=== PATIENT | male | born 1990 | race Caucasian/White ===

== ENCOUNTER → 2020-03-04 12:56 | Outpatient (CLI) | payer OTHER, SELFPAY ==
--- NOTE | 2020-03-04 | DI.RAD.S_ITS ---
PROCEDURE: FL SHOULDER INJECTION MR/CT RT INDICATIONS: CHRONIC RIGHT SHOULDER PAIN TECHNIQUE: The indications, alternatives, benefits, risks, and complications of the procedure were explained to the patient. Written informed consent was obtained and placed in the chart. The shoulder was examined fluoroscopically and a site for needle placement chosen for entry into the glenohumeral joint from an anterior approach. The skin was prepped and draped in a sterile fashion, and 1% lidocaine infiltrated from skin down to joint capsule. A spinal needle was inserted into the glenohumeral joint, and a small amount of iodinated contrast media injected to confirm intra-articular placement of the needle tip. This was followed by approximately 12 mL dilute solution of a gadolinium containing MR contrast agent. The needle was removed and a dressing was applied. The patient was given postprocedural instructions and sent to the MR suite for MR imaging. FINDINGS: A single fluoroscopic spot image demonstrates intra-articular location of injected iodinated contrast. IMPRESSION: Successful fluoroscopically guided administration of dilute Gadolinium solution into the shoulder joint for MR arthrogram. Dictated by: German Perez M.D. on 03/04/2020 at 14:10 Approved by: German Perez M.D. on 03/04/2020 at 14:11
--- NOTE | 2020-03-04 | DI.MRI.S_ITS ---
PROCEDURE: MR SHOULDER RT W CON INDICATIONS: CHRONIC RIGHT SHOULDER PAIN TECHNIQUE: After the administration of 12 mL of dilute intra-articular Gadolinium contrast, oblique coronal T1 and T2 spin echo with fat saturation, oblique sagittal T1 spin echo with and without fat saturation, oblique sagittal T2 fast spin echo with fat saturation, axial T1 spin echo with fat saturation through the shoulder. COMPARISON: None. FINDINGS: Image quality: Excellent. Rotator cuff: Tendinosis and low-grade articular and bursal surface partial thickness tear involving distal supraspinatus at its insertion on humeral head is seen extending to musculotendinous junction. Distal infraspinatus and subscapularis tendons are grossly intact. No full-thickness rotator cuff tendon rupture. No rotator cuff muscle atrophy on sagittal images. Bones and bursae: No bone marrow contusions or fractures. No acromioclavicular joint degeneration. The acromion demonstrates conventional anatomy, without an os acromiale. Capsule and soft tissues: There is superior anterior labral tear at 12 to 1 o'clock position. The glenohumeral ligaments appear intact. The long head of the biceps tendon demonstrates normal location and morphology. The rotator interval appears normal, without fibrosis. The coracohumeral ligament is of normal thickness. No intra-articular bodies. IMPRESSION: 1. Suggestion of superior anterior labral tear at 12 to 1 o'clock position. 2. Tendinosis and low-grade articular and bursal surface partial thickness tear involving distal supraspinatus extending to musculotendinous junction. Dictated by: José Miguel Orlando M.D. on 03/04/2020 at 14:30 Approved by: José Miguel Orlando M.D. on 03/04/2020 at 14:34
== END ==
PROVIDERS: PCP Student in an Organized Health Care Education/Training Program; Referring Provider Student in an Organized Health Care Education/Training Program; Visit Provider Student in an Organized Health Care Education/Training Program
DX: M25.511 Pain in right shoulder (principal); M75.111 Incomplete rotator cuff tear or rupture of right shoulder, not specified as traumatic; G89.29 Other chronic pain
CPT/HCPCS: 23350; 73222; 77002

== ENCOUNTER 2021-07-27 13:17 | Emergency (ER) | payer OTHER, SELFPAY ==
[2021-07-27 13:53] VITALS: BP 131/72; PULSE 101; RESP 20; TEMP 36.9; O2SAT 99
--- NOTE | 2021-07-27 14:27 | ED.RECABL ---
HPI - Recheck/Abnormal Lab/Rx General Chief Complaint: Recheck/Abnormal Lab/Rx Stated Complaint: AT HOME COVID POSITIVE TEST Time Seen by Provider: 07/27/21 14:19 Source: patient Mode of arrival: Ambulatory History of Present Illness HPI narrative: Otherwise healthy unvaccinated 30-year-old gentleman with acute onset cough, severe fatigue, mild nausea single episode of vomiting, heightened sense of smell over the last 12 hours and general malaise with a positive home COVID test presents for further evaluation. Apparently his work requests confirmation and medical care. Related Data Previous Rx's Medication Instructions Recorded benzonatate 100 mg capsule 100 mg PO BID-TID PRN #20 cap 07/27/21 ondansetron 4 mg disintegrating 4 mg PO Q8H PRN #12 tab 07/27/21 tablet Allergies Allergy/AdvReac Type Severity Reaction Status Date / Time No Known Drug Allergies Allergy Verified 07/27/21 13:56 Review of Systems Review of Systems Narrative: Remainder of complete review of systems is otherwise unremarkable except for that included in the HPI. Patient History Medical History (Updated 07/27/21 @ 14:31 by Nicole Tapia MD) COVID-19 Social History Smoking Status: Current every day smoker Smoking Status: Current every day smoker tobacco type: vaping Exam Narrative Exam Narrative: General: Alert appropriate in no acute distress Respiratory: Able to speak in full sentences, no obvious respiratory distress Skin: No obvious rashes, warm and dry Neurologic: Grossly intact no obvious asymmetries or abnormalities Psych: appropriate insight and affect, cooperative Initial Vital Signs Initial Vital Signs: Vital Signs Temperature 98.5 F 07/27/21 13:53 Pulse Rate 101 H 07/27/21 13:53 Respiratory Rate 20 07/27/21 13:53 Blood Pressure 131/72 07/27/21 13:53 Pulse Oximetry 99 07/27/21 13:53 Course Orders Ordered: ED Orders 07/27/21 14:01 COVID19 -Nasal swab/Pre-Proc Stat Vital Signs Vital signs: Vital Signs - 8 hr 07/27/21 13:53 Temperature 98.5 F Pulse Rate 101 H Respiratory Rate 20 Blood Pressure 131/72 Pulse Oximetry 99 MDM - Recheck/Abnormal Lab/Rx MDM Narrative Medical decision making narrative: 30-year-old gentleman on day 1 of COVID symptoms. Under vaccinated. Required to come to the emergency department by his work. COVID is confirmed anticipatory guidance reviewed will give him prescriptions for Zofran for the nausea and Tessalon Perles to help with the cough. He is safe for home discharge Discharge Plan Departure Patient Disposition: Home Clinical Impression: COVID-19 Instructions: DI for COVID-19 (Suspected or Confirmed ) Activity Restrictions/Additional Instructions: Your PCR test was positive for COVID today Going to give you a prescription for Zofran to use for nausea, this is a common symptom with COVID. Most people or fairly uncomfortable with the cough, I have given you a prescription for Tessalon Perles that may help suppress the cough a bit. Most up-to-date recommendations for monoclonal antibodies are recommending against them as they have not been effective with omecron, which is now the dominant strain of COVID. If you notice that you are so short of breath your having difficulty walking across the room or consistently have oxygen saturations below 94% please feel free to return to the emergency room for further evaluation Prescriptions: New ondansetron 4 mg tablet,disintegrating 4 mg PO Q8H PRN (Reason: nausea and vomiting) Qty: 12 0RF benzonatate 100 mg capsule 100 mg PO BID-TID PRN (Reason: cough) Qty: 20 0RF Referrals: Eliza Alonso [Primary Care Provider] -
[2021-07-27 14:29] LABS: COVID19 -Nasal RAPID POSITIVE (Negative)
== END 2021-07-27 14:49 | disposition home or self-care (01) ==
PROVIDERS: Emergency Provider Emergency Medicine; PCP Student in an Organized Health Care Education/Training Program
DX: U07.1 COVID-19 (principal); F17.290 Nicotine dependence, other tobacco product, uncomplicated
CPT/HCPCS: 87635; 99281; C9803